=== PATIENT | female | born 1945 | race Caucasian/White ===

== ENCOUNTER 2018-02-07 21:06 | Observation (INO) | payer MEDICARE, OTHER ==
[2018-02-07] MEDS ORDERED: Sodium Chloride 0.9% 1,000 ML IV STA (21:33)
--- NOTE | 2018-02-07 21:35 | ED PDOC ---
HPI: Abdomen Time Seen by Provider: 02/07/18 21:30 Chief Complaint (Nursing): Abdominal Pain History Per: Patient Onset/Duration Of Symptoms: Days (2) Current Symptoms Are (Timing): Still Present Severity: Moderate Pain Scale Rating Of: 4 Location Of Pain/Discomfort: Epigastric Quality Of Discomfort: Unable To Describe Associated Symptoms: Nausea. denies: Fever, Diarrhea Exacerbating Factors: None Alleviating Factors: None Additional Complaint(s): Epigastric abd pain assoc with nausea. No fever or diarrhea. Past Medical History Vital Signs: Last Vital Signs Temp 98.6 F 02/08/18 09:04 Pulse 91 H 02/08/18 09:04 Resp 20 02/08/18 09:04 BP 173/75 H 02/08/18 10:27 Pulse Ox 95 02/08/18 09:04 - Medical History PMH: Anxiety, Depression, Diabetes (type II), HTN, Hypercholesterolemia - Surgical History Surgical History: Cholecystectomy - Family History Family History: States: Unknown Family Hx - Immunization History Hx Influenza Vaccination: Yes Hx Pneumococcal Vaccination: Yes - Home Medications Home Medications: Ambulatory Orders Medication Instructions Recorded Insulin Aspart, Recombinant 10 units SUBCUT DAILY 12/30/12 [Novolog] Insulin Detemir [Levemir] 15 units 12/30/12 Depakote 250 mg PO BID 03/24/13 Naproxen [Naprosyn] 500 mg PO TID PRN #25 tab 03/24/13 SEROquel 50 mg PO HS 03/24/13 Famotidine [Pepcid] 40 mg PO DAILY #30 tab 03/05/16 Ciprofloxacin [Cipro] 500 mg PO BID #14 tab 02/07/18 Lisinopril [Zestril] 2.5 mg PO DAILY #30 tab 02/07/18 - Allergies Allergies/Adverse Reactions: Allergies Allergy/AdvReac Type Severity Reaction Status Date / Time morphine AdvReac RASH Verified 02/07/18 21:09 Review of Systems ROS Statement: Except As Marked, All Systems Reviewed And Found Negative Gastrointestinal: Positive for: Nausea, Abdominal Pain Physical Exam - Reviewed Nursing Documentation Reviewed: Yes Vital Signs Reviewed: Yes - Physical Exam Appears: Positive for: Non-toxic, Uncomfortable Head Exam: Positive for: ATRAUMATIC, NORMAL INSPECTION, NORMOCEPHALIC Skin: Positive for: Normal Color, Warm, DRY Eye Exam: Positive for: EOMI, Normal appearance, PERRL ENT: Positive for: Normal ENT Inspection Neck: Positive for: Normal, Painless ROM Cardiovascular/Chest: Positive for: Regular Rate, Rhythm Respiratory: Positive for: CNT, Normal Breath Sounds Gastrointestinal/Abdominal: Positive for: Soft, Tenderness (epigastric) Back: Positive for: Normal Inspection Extremity: Positive for: Normal ROM Neurologic/Psych: Positive for: Alert, Oriented - Laboratory Results Result Diagrams: 02/07/18 22:20 02/07/18 22:20 - ECG O2 Sat by Pulse Oximetry: 98 Disposition - Clinical Impression Clinical Impression: Abdominal pain - Patient ED Disposition Is Patient to be Admitted: Transfer of Care - Disposition Disposition: Transfer of Care Disposition Time: 00:00 Condition: FAIR Patient Signed Over To: Roney Anthony
[2018-02-07 22:30] LABS: BASO % 0.5 % (0.0-2.0); EOS % 0.5 % (0.0-4.0); HEMOGLOBIN 14.5 g/dL (12.0-16.0); LYMPH # 0.8 K/uL (1.0-4.3); LYMPH % 12.8 % (20.0-40.0); MEAN CELL VOLUME 94.2 fl (81.0-99.0); MEAN CORPUSCULAR HEMOGLOBIN 31.5 pg (27.0-31.0); MEAN CORPUSCULAR HGB CONC 33.4 g/dL (33.0-37.0); MONO # 0.3 K/uL (0.0-0.8); MONO % 5.5 % (0.0-10.0); NEUT # 5.1 K/uL (1.8-7.0); NEUT % 80.7 % (50.0-75.0); RBC 4.62 Mil/uL (3.80-5.20); RED CELL DISTRIBUTION WIDTH 13.2 % (11.5-14.5); WHITE BLOOD COUNT 6.3 K/uL (4.8-10.8)
[2018-02-07 22:39] LABS: ALB/GLOB RATIO 1.4 (1.0-2.1); ALBUMIN 4.7 g/dL (3.5-5.0); CALCIUM 9.4 mg/dL (8.4-10.2); GFR NON-AFRICAN AMERICAN > 60; LIPASE 32 U/L (23-300)
[2018-02-07 22:52] LABS: ALT/SGPT 22 U/L (9-52); AST/SGOT 28 U/L (14-36); BLOOD UREA NITROGEN 11 mg/dl (7-17)
[2018-02-07] MEDS ORDERED: Sodium Chloride 0.9% 50 ML IV ONE (22:58)
[2018-02-07] MEDS ORDERED: Iohexol 300 100 ML IJ ONE (22:58)
--- NOTE | 2018-02-08 00:10 | ED PDOC ---
- Laboratory Results Result Diagrams: 02/07/18 22:20 02/07/18 22:20 - ECG O2 Sat by Pulse Oximetry: 98 (RA) Pulse Ox Interpretation: Normal Medical Decision Making Medical Decision Making: Time: 00:00 Patient was signed out to me by Dr. Harvey pending CT, reevaluation, and final disposition. CT Abd/Pelvis: FINDINGS: Lung bases: Small airway trapping and microatelectasis Heart: Cardiomegaly with coronary and faint valvular calcifications Mediastinum: Small hiatal hernia. Slight prominence of the lower esophageal wallClinical correlation. ABDOMEN: Liver: There is hepatomegaly and fatty infiltration of the liver. Gallbladder and bile ducts: Prior cholecystectomy without CT complications. No ductal dilation. Pancreas: Unremarkable. No mass. No ductal dilation. Spleen: Unremarkable. No splenomegaly. Adrenals: Unremarkable. No mass. Kidneys and ureters: There is a stable punctate calcification posterior-lateral to the upper left ureter.No hydronephrosis or differential renal nephrogram. Stomach and bowel: Stomach distended with semisolid food. Prior left hemicolectomy. Distention of the afferent limb with a component of obstruction at the surgical suture line possible. No definitive mesenteric twist sigmoid volvulus. There also surgical clips deep to the afferent limb. There is semisolid stool in the rectosigmoid colon Limitations colon streak artifact Diverticulosis coli, without full-filling the C.T. criteria for diverticulitis. No perforation, or abscess. No signs or history of bleeding provided. PELVIS: Appendix: The appendix is not identified with certainty but there are no secondary C.T. findings of appendicitis. Bladder: Unremarkable. No mass. Reproductive: Unremarkable as visualized. ABDOMEN and PELVIS: Intraperitoneal space: Unremarkable. No free air. No significant fluid collection. Bones/joints: Spondylosis and facet arthrosis No acute fracture. No dislocation. Soft tissues: Unremarkable. Vasculature: Atheromatous changes of a normal caliber aorta and branch vessels. No abdominal aortic aneurysm. Lymph nodes: Unremarkable. No enlarged lymph nodes. IMPRESSION: Colonic anatomy is difficult to evaluate in the absence of enteric contrast. Left hemicolectomy with chain sutures and distention of the afferent limb without definitive mesenteric twist. Please correlate clinically. Prior cholecystectomy. 00:[address] findings and clinical presentation, surgical consultation ordered. 1:[address] Fink, covering for Dr. Damon Roth, who will accept patient for admission under observation status for abdominal pain. Dr. Hernandes, certified surgical assistant cfo controller will evaluate patient. Scribe Attestation: Documented by, Rain Garner acting as a scribe for Ronye Anthony MD. Provider Scribe Attestation: All medical record entries made by the Scribe were at my direction and personally dictated by me. I have reviewed the chart and agree that the record accurately reflects my personal performance of the history, physical exam, medical decision making, and the department course for this patient. I have also personally directed, reviewed, and agree with the discharge instructions and disposition. Disposition - Clinical Impression Clinical Impression: Abdominal pain - POA Present On Arrival: None - Disposition Disposition: Hospitalized as Observation Patient Disposition Time: 01:30 Condition: FAIR
--- NOTE | 2018-02-08 01:08 | CP.PCM.CON ---
<Yoel Hernandes - Last Filed: 02/08/18 07:15> History of Present Illness - History of Present Illness History of Present Illness: General Surgery Consult Note for Dr. Joshua Reason for consult: abdominal pain 72F with PMH of DM, HTN, s/p subtotal colectomy who presents to [facility] for complaint of abdominal pain. Patient was seen and evaluated in the ED immediately upon page. Patient was discharged from [facility] yesterday (02/07). Patient was admitted for constipation and abdominal pain s/p Fall. Patient was discahrged on bowel regimen, lisinopril, and cipro. Patient presented with abdominal pain but would only state she had pain. She did not answer other questions. ROS unobtainable due to cooperation. CT abd/pelvis was done in the ED. Initial [facility] readding was suggestive of sigmoid volvulus but radiologist was unaware that patient did not have sigmoid colon due to subtotal colectomy in 2017. Ct scan showed stool and slightly dilated colon upon review, pending official read. PMD: Dr. Jose PMH: DM PSH: subtotal colectomy at [facility] 2017, cholecystectomy Meds: Novolog 10units; Levemir 15 units HS Allergies: Morphine FH: cancer Social: Lives with daughter or friend; denies EtOH/tobacco/illicit drug use. Review of Systems - Review of Systems All systems: reviewed and no additional remarkable complaints except (as per HPI ) Past Patient History - Past Social History Smoking Status: Never Smoked - CARDIAC Hx Hypercholesterolemia: Yes Hx Hypertension: Yes - ENDOCRINE/METABOLIC Hx Endocrine Disorders: Yes Hx Diabetes Mellitus Type 2: Yes - PSYCHIATRIC Hx Anxiety: Yes Hx Depression: Yes - SURGICAL HISTORY Hx Cholecystectomy: Yes - ANESTHESIA Hx Anesthesia: Yes Hx Anesthesia Reactions: No Hx Malignant Hyperthermia: No Meds Allergies/Adverse Reactions: Allergies Allergy/AdvReac Type Severity Reaction Status Date / Time morphine AdvReac RASH Verified 02/07/18 21:09 - Medications Medications: Current Medications Sodium Chloride (Sodium Chloride 0.9%) 1,000 mls @ 100 mls/hr IV .Q10H STA Stop: 02/08/18 07:32 Last Admin: 02/07/18 23:15 Dose: 100 mls/hr Physical Exam - Constitutional Appears: Agitated - Head Exam Head Exam: ATRAUMATIC, NORMOCEPHALIC - Eye Exam Eye Exam: Normal appearance - ENT Exam ENT Exam: Mucous Membranes Moist - Respiratory Exam Respiratory Exam: NORMAL BREATHING PATTERN - Cardiovascular Exam Cardiovascular Exam: REGULAR RHYTHM - GI/Abdominal Exam GI & Abdominal Exam: Normal Bowel Sounds, Soft, Tenderness (RLQ). absent: Distended, Firm, Guarding, Hernia, Rebound, Rigid - Neurological Exam Neurological exam: Alert - Psychiatric Exam Psychiatric exam: Agitated - Skin Skin Exam: Dry, Warm Results - Vital Signs Recent Vital Signs: Last Vital Signs Temp 97.9 F 02/07/18 21:10 Pulse 94 H 02/07/18 21:10 Resp 18 02/07/18 21:10 BP 138/95 H 02/07/18 21:10 Pulse Ox 98 02/08/18 00:56 - Labs Result Diagrams: 02/07/18 22:20 02/07/18 22:20 Labs: Laboratory Results - last 24 hr 02/07/18 02/07/18 02/07/18 21:28 22:20 22:20 WBC 6.3 RBC 4.62 Hgb 14.5 Hct 43.5 MCV 94.2 MCH 31.5 H MCHC 33.4 RDW 13.2 Plt Count 370 MPV 9.0 Neut % (Auto) 80.7 H Lymph % (Auto) 12.8 L Marin % (Auto) 5.5 Eos % (Auto) 0.5 Baso % (Auto) 0.5 Neut # (Auto) 5.1 Lymph # (Auto) 0.8 L Marin # (Auto) 0.3 Eos # (Auto) 0.0 Baso # (Auto) 0.0 Sodium 136 Potassium 4.1 Chloride 103 Carbon Dioxide 20 L Anion Gap 17 BUN 11 Creatinine 0.6 L Est GFR ( Amer) > 60 Est GFR (Non-Af Amer) > 60 POC Glucose (mg/dL) 188 H Random Glucose 197 H Calcium 9.4 Total Bilirubin 0.9 AST 28 ALT 22 Alkaline Phosphatase 62 Total Protein 8.2 Albumin 4.7 Globulin 3.4 Albumin/Globulin Ratio 1.4 Lipase 32 Assessment & Plan - Assessment and Plan (Free Text) Assessment: 72 F who presents for abdominal pain - Date & Time Date: 02/08/18 Time: 02:00 <Oren Shay - Last Filed: 02/08/18 14:14> Meds - Medications Medications: Current Medications Dextrose (Dextrose 50% Inj) 0 ml IV STAT PRN; Protocol PRN Reason: Hypoglycemia Protocol Dextrose (Glutose 15) 0 gm PO ONCE PRN; Protocol PRN Reason: Hypoglycemia Protocol Dicyclomine HCl (Bentyl) 10 mg PO QID PRN PRN Reason: Pain, moderate (4-7) Glucagon (Glucagen Diagnostic Kit) 0 mg IM STAT PRN; Protocol PRN Reason: Hypoglycemia Protocol Lactated Ringer's (Lactated Ringer's) 1,000 mls @ 85 mls/hr IV .[id number] [facility] Last Admin: 02/08/18 03:50 Dose: 85 mls/hr Insulin Human Regular (Humulin R) 0 units SC ACB [facility] PRN Reason: Protocol Last Admin: 02/08/18 08:41 Dose: Not Given Lisinopril (Zestril) 20 mg PO DAILY [facility] Last Admin: 02/08/18 10:27 Dose: 20 mg Metformin HCl (Glucophage) 500 mg PO BIDWM [facility] Last Admin: 02/08/18 10:32 Dose: 500 mg Ondansetron HCl (Zofran Inj) 4 mg IVP Q6 PRN PRN Reason: Nausea/Vomiting Pantoprazole Sodium (Protonix Inj) 40 mg IVP DAILY [facility] Last Admin: 02/08/18 08:44 Dose: 40 mg Sitagliptin Phosphate (Januvia) 100 mg PO DAILY [facility] Last Admin: 02/08/18 10:31 Dose: 100 mg Results - Vital Signs Recent Vital Signs: Last Vital Signs Temp 98.6 F 02/08/18 09:04 Pulse 91 H 02/08/18 09:04 Resp 20 02/08/18 09:04 BP 173/75 H 02/08/18 10:27 Pulse Ox 95 02/08/18 09:04 - Labs Result Diagrams: 02/07/18 22:20 02/07/18 22:20 Labs: Laboratory Results - last 24 hr 02/07/18 02/07/18 02/07/18 21:28 22:20 22:20 WBC 6.3 RBC 4.62 Hgb 14.5 Hct 43.5 MCV 94.2 MCH 31.5 H MCHC 33.4 RDW 13.2 Plt Count 370 MPV 9.0 Neut % (Auto) 80.7 H Lymph % (Auto) 12.8 L Marin % (Auto) 5.5 Eos % (Auto) 0.5 Baso % (Auto) 0.5 Neut # (Auto) 5.1 Lymph # (Auto) 0.8 L Marin # (Auto) 0.3 Eos # (Auto) 0.0 Baso # (Auto) 0.0 Sodium 136 Potassium 4.1 Chloride 103 Carbon Dioxide 20 L Anion Gap 17 BUN 11 Creatinine 0.6 L Est GFR ( Amer) > 60 Est GFR (Non-Af Amer) > 60 POC Glucose (mg/dL) 188 H Random Glucose 197 H Lactic Acid Calcium 9.4 Total Bilirubin 0.9 AST 28 ALT 22 Alkaline Phosphatase 62 Total Protein 8.2 Albumin 4.7 Globulin 3.4 Albumin/Globulin Ratio 1.4 Triglycerides Cholesterol LDL Cholesterol Direct HDL Cholesterol Lipase 32 TSH 3rd Generation 02/08/18 02/08/18 02/08/18 02:45 03:46 06:18 WBC RBC Hgb Hct MCV MCH MCHC RDW Plt Count MPV Neut % (Auto) Lymph % (Auto) Marin % (Auto) Eos % (Auto) Baso % (Auto) Neut # (Auto) Lymph # (Auto) Marin # (Auto) Eos # (Auto) Baso # (Auto) Sodium Potassium Chloride Carbon Dioxide Anion Gap BUN Creatinine Est GFR ( Amer) Est GFR (Non-Af Amer) POC Glucose (mg/dL) 183 H 170 H Random Glucose Lactic Acid 0.7 Calcium Total Bilirubin AST ALT Alkaline Phosphatase Total Protein Albumin Globulin Albumin/Globulin Ratio Triglycerides Cholesterol LDL Cholesterol Direct HDL Cholesterol Lipase TSH 3rd Generation 02/08/18 10:35 WBC RBC Hgb Hct MCV MCH MCHC RDW Plt Count MPV Neut % (Auto) Lymph % (Auto) Marin % (Auto) Eos % (Auto) Baso % (Auto) Neut # (Auto) Lymph # (Auto) Marin # (Auto) Eos # (Auto) Baso # (Auto) Sodium Potassium Chloride Carbon Dioxide Anion Gap BUN Creatinine Est GFR ( Amer) Est GFR (Non-Af Amer) POC Glucose (mg/dL) Random Glucose Lactic Acid Calcium Total Bilirubin AST ALT Alkaline Phosphatase Total Protein Albumin Globulin Albumin/Globulin Ratio Triglycerides 105 Cholesterol 271 H LDL Cholesterol Direct 128 HDL Cholesterol 104 H Lipase TSH 3rd Generation < 0.02 L Assessment & Plan - Assessment and Plan (Free Text) Plan: Abdominal pain secondary to constipation causing distal blockage. Pt now has significant relief after having several large BMs. Recommend Fleets enema, dulcolax suppository, and Mag citrate to help clean out her colon prior to discharge. Recommend fiber supplements and/or stool softener as an outpatient to prevent recurrence. No need for surgical intervention at this time. Surgery will sign off. D/W Dr. Tres Shay PGY4 <Devon Joshua - Last Filed: 02/08/18 17:47> Meds - Medications Medications: Current Medications Dextrose (Dextrose 50% Inj) 0 ml IV STAT PRN; Protocol PRN Reason: Hypoglycemia Protocol Dextrose (Glutose 15) 0 gm PO ONCE PRN; Protocol PRN Reason: Hypoglycemia Protocol Dicyclomine HCl (Bentyl) 10 mg PO QID PRN PRN Reason: Pain, moderate (4-7) Last Admin: 02/08/18 16:31 Dose: 10 mg Glucagon (Glucagen Diagnostic Kit) 0 mg IM STAT PRN; Protocol PRN Reason: Hypoglycemia Protocol Lactated Ringer's (Lactated Ringer's) 1,000 mls @ 85 mls/hr IV .[id number] [facility] Last Admin: 02/08/18 03:50 Dose: 85 mls/hr Insulin Human Regular (Humulin R) 0 units SC ACB [facility] PRN Reason: Protocol Last Admin: 02/08/18 08:41 Dose: Not Given Lisinopril (Zestril) 20 mg PO DAILY [facility] Last Admin: 02/08/18 10:27 Dose: 20 mg Metformin HCl (Glucophage) 500 mg PO BIDWM [facility] Last Admin: 02/08/18 16:32 Dose: 500 mg Ondansetron HCl (Zofran Inj) 4 mg IVP Q6 PRN PRN Reason: Nausea/Vomiting Pantoprazole Sodium (Protonix Inj) 40 mg IVP DAILY [facility] Last Admin: 02/08/18 08:44 Dose: 40 mg Sitagliptin Phosphate (Januvia) 100 mg PO DAILY [facility] Last Admin: 02/08/18 10:31 Dose: 100 mg Results - Vital Signs Recent Vital Signs: Last Vital Signs Temp 99.3 F 02/08/18 15:54 Pulse 96 H 02/08/18 15:54 Resp 20 02/08/18 15:54 BP 169/80 H 02/08/18 15:54 Pulse Ox 97 09/05/18 15:54 - Labs Result Diagrams: 02/07/18 22:20 02/07/18 22:20 Labs: Laboratory Results - last 24 hr 02/07/18 02/07/18 02/07/18 21:28 22:20 22:20 WBC 6.3 RBC 4.62 Hgb 14.5 Hct 43.5 MCV 94.2 MCH 31.5 H MCHC 33.4 RDW 13.2 Plt Count 370 MPV 9.0 Neut % (Auto) 80.7 H Lymph % (Auto) 12.8 L Marin % (Auto) 5.5 Eos % (Auto) 0.5 Baso % (Auto) 0.5 Neut # (Auto) 5.1 Lymph # (Auto) 0.8 L Marin # (Auto) 0.3 Eos # (Auto) 0.0 Baso # (Auto) 0.0 Sodium 136 Potassium 4.1 Chloride 103 Carbon Dioxide 20 L Anion Gap 17 BUN 11 Creatinine 0.6 L Est GFR ( Amer) > 60 Est GFR (Non-Af Amer) > 60 POC Glucose (mg/dL) 188 H Random Glucose 197 H Hemoglobin A1c Lactic Acid Calcium 9.4 Total Bilirubin 0.9 AST 28 ALT 22 Alkaline Phosphatase 62 Total Protein 8.2 Albumin 4.7 Globulin 3.4 Albumin/Globulin Ratio 1.4 Triglycerides Cholesterol LDL Cholesterol Direct HDL Cholesterol Lipase 32 TSH 3rd Generation 02/08/18 02/08/18 02/08/18 02:45 03:46 06:18 WBC RBC Hgb Hct MCV MCH MCHC RDW Plt Count MPV Neut % (Auto) Lymph % (Auto) Marin % (Auto) Eos % (Auto) Baso % (Auto) Neut # (Auto) Lymph # (Auto) Marin # (Auto) Eos # (Auto) Baso # (Auto) Sodium Potassium Chloride Carbon Dioxide Anion Gap BUN Creatinine Est GFR ( Amer) Est GFR (Non-Af Amer) POC Glucose (mg/dL) 183 H 170 H Random Glucose Hemoglobin A1c Lactic Acid 0.7 Calcium Total Bilirubin AST ALT Alkaline Phosphatase Total Protein Albumin Globulin Albumin/Globulin Ratio Triglycerides Cholesterol LDL Cholesterol Direct HDL Cholesterol Lipase TSH 3rd Generation 02/08/18 02/08/18 02/08/18 10:07 10:35 15:41 WBC RBC Hgb Hct MCV MCH MCHC RDW Plt Count MPV Neut % (Auto) Lymph % (Auto) Marin % (Auto) Eos % (Auto) Baso % (Auto) Neut # (Auto) Lymph # (Auto) Marin # (Auto) Eos # (Auto) Baso # (Auto) Sodium Potassium Chloride Carbon Dioxide Anion Gap BUN Creatinine Est GFR ( Amer) Est GFR (Non-Af Amer) POC Glucose (mg/dL) 142 H Random Glucose Hemoglobin A1c 10.6 H Lactic Acid Calcium Total Bilirubin AST ALT Alkaline Phosphatase Total Protein Albumin Globulin Albumin/Globulin Ratio Triglycerides 105 Cholesterol 271 H LDL Cholesterol Direct 128 HDL Cholesterol 104 H Lipase TSH 3rd Generation < 0.02 L Assessment & Plan - Assessment and Plan (Free Text) Plan: I personally saw and examined the patient with the resident staff and agree with the above assessment and plan. I personally reviewed the available diagnostic images and imaging reports. Significant stool burden on CT in rectum and proximal colon from prior anastomosis. Abd pain improved and passing flatus at bedside. Rec bowel evacuation as above, diet as tolerated and discharge per primary team as there are no acute surgical needs.
[2018-02-08] MEDS: Lactated Ringer's 1,000 ML IV SCH (03:50)
[2018-02-08] MEDS ORDERED: Dextrose 50% SYRINGE Inj (50 ml) IV PRN (06:41)
[2018-02-08] MEDS ORDERED: Glucagon Recombinant 1 mg Inj IM PRN (06:41)
[2018-02-08] MEDS ORDERED: Dextrose 5%/Lactated Ringer's 1,000 ML IV SCH (06:45)
[2018-02-08] MEDS: Insulin Regular 100 units/ml SC SCH (08:41)
[2018-02-08 10:52] LABS: HDL CHOLESTEROL 104 MG/DL (30-70)
[2018-02-08 11:02] LABS: LDL CHOLESTEROL 128 mg/dL (0-129)
--- NOTE | 2018-02-08 11:33 | CT ---
Date of service: 02/07/2018 PROCEDURE: CT Abdomen and Pelvis with contrast HISTORY: Abdominal pain. Relevant surgical history: Left hemicolectomy. COMPARISON: 03/05/2016 TECHNIQUE: Contrast dose: 80.2 mL Omnipaque 300 Radiation dose: Total exam DLP = 198.59 mGy-cm. This CT exam was performed using one or more of the following dose reduction techniques: Automated exposure control, adjustment of the mA and/or kV according to patient size, and/or use of iterative reconstruction technique. FINDINGS: LOWER THORAX: Unremarkable. LIVER: Hepatic steatosis. No focal masses. No intrahepatic bile duct dilatation or perihepatic ascites. GALLBLADDER AND BILE DUCTS: Status post cholecystectomy. No abnormality is seen in the gallbladder fossa. PANCREAS: Unremarkable. No gross lesion or ductal dilatation. SPLEEN: Unremarkable. ADRENALS: Unremarkable. No mass. KIDNEYS AND URETERS: Unremarkable. No hydronephrosis. No solid mass. VASCULATURE: Unremarkable. No aortic aneurysm. BOWEL: Distention of the colon proximal to the anastomotic suture line. Similar findings identified on the prior CT scan common debris of dilatation more prominent currently. Obstruction at the site therefore should be considered. APPENDIX: Normal appendix. PERITONEUM: Unremarkable. No free fluid. No free air. LYMPH NODES: Unremarkable. No enlarged lymph nodes. BLADDER: Unremarkable. REPRODUCTIVE: Unremarkable. BONES: No acute fracture. OTHER FINDINGS: None. IMPRESSION: Status post left hemicolectomy. Distention proximal to the surgical suture line. A component of obstruction therefore should be considered. Concordant results (preliminary interpretation) provided by [facility]. Procedure Completed: 23:23 Preliminary ([facility]) Report: Dictated and Authenticated: 00:16. February 08, 2018. Final Interpretation: 11:32. February 08, 2018.
[2018-02-08] MEDS ORDERED: Magnesium Citrate Oral SOL (300 ml) PO ONE (13:29)
[2018-02-08] MEDS ORDERED: Chlorhexidine Gluconate 1 APPL/PKT TP ONE (16:29)
--- NOTE | 2018-02-08 16:34 | CP.PCM.HP ---
History of Present Illness - History of Present Illness History of Present Illness: 72 yo F with pmhx of dm, L colectomy presented to the ED with abdominal pain. epigastric region with nausea. CT: abdo reviewed Of note, she was evaluated and treated at [facility] 02/05/2018: dc with bowel regimen and cipro pmd: dr. phillips surg: L bowel resection soc: denies smoking, alcohol, illicit drugs famhx: cancer Allergies: morphine Present on Admission - Present on Admission Any Indicators Present on Admission: Yes History of Uncontrolled Diabetes: Yes Review of Systems - Cardiovascular Cardiovascular: absent: Chest Pain - Respiratory Respiratory: absent: Cough, Dyspnea - Gastrointestinal Gastrointestinal: As Per HPI, Abdominal Pain Past Patient History - Past Medical History & Family History Past Medical History?: Yes - Past Social History Smoking Status: Never Smoked Alcohol: None Drugs: Denies - CARDIAC Hx Hypercholesterolemia: Yes Hx Hypertension: Yes - ENDOCRINE/METABOLIC Hx Endocrine Disorders: Yes Hx Diabetes Mellitus Type 2: Yes - MUSCULOSKELETAL/RHEUMATOLOGICAL Hx Falls: No - GASTROINTESTINAL Hx Gall Bladder Disease: Yes - PSYCHIATRIC Hx Anxiety: Yes Hx Depression: Yes - SURGICAL HISTORY Hx Cholecystectomy: Yes - ANESTHESIA Hx Anesthesia: Yes Hx Anesthesia Reactions: No Hx Malignant Hyperthermia: No Meds Allergies/Adverse Reactions: Allergies Allergy/AdvReac Type Severity Reaction Status Date / Time morphine AdvReac RASH Verified 02/07/18 21:09 Physical Exam - Eye Exam Eye Exam: EOMI - Respiratory Exam Respiratory Exam: Clear to Auscultation Bilateral, NORMAL BREATHING PATTERN. absent: Wheezes - Cardiovascular Exam Cardiovascular Exam: +S1, +S2 - GI/Abdominal Exam GI & Abdominal Exam: Normal Bowel Sounds, Tenderness (RLQ) - Neurological Exam Neurological exam: Alert, CN II-XII Intact, Oriented x3 - Psychiatric Exam Psychiatric exam: Anxious Results - Vital Signs Recent Vital Signs: Last Vital Signs Temp 99.3 F 02/08/18 15:54 Pulse 96 H 02/08/18 15:54 Resp 20 02/08/18 15:54 BP 169/80 H 02/08/18 15:54 Pulse Ox 97 02/08/18 15:54 - Labs Result Diagrams: 02/07/18 22:20 02/07/18 22:20 Labs: Laboratory Results - last 24 hr 02/07/18 02/07/18 02/07/18 21:28 22:20 22:20 WBC 6.3 RBC 4.62 Hgb 14.5 Hct 43.5 MCV 94.2 MCH 31.5 H MCHC 33.4 RDW 13.2 Plt Count 370 MPV 9.0 Neut % (Auto) 80.7 H Lymph % (Auto) 12.8 L Parke % (Auto) 5.5 Eos % (Auto) 0.5 Baso % (Auto) 0.5 Neut # (Auto) 5.1 Lymph # (Auto) 0.8 L Parke # (Auto) 0.3 Eos # (Auto) 0.0 Baso # (Auto) 0.0 Sodium 136 Potassium 4.1 Chloride 103 Carbon Dioxide 20 L Anion Gap 17 BUN 11 Creatinine 0.6 L Est GFR ( Amer) > 60 Est GFR (Non-Af Amer) > 60 POC Glucose (mg/dL) 188 H Random Glucose 197 H Hemoglobin A1c Lactic Acid Calcium 9.4 Total Bilirubin 0.9 AST 28 ALT 22 Alkaline Phosphatase 62 Total Protein 8.2 Albumin 4.7 Globulin 3.4 Albumin/Globulin Ratio 1.4 Triglycerides Cholesterol LDL Cholesterol Direct HDL Cholesterol Lipase 32 TSH 3rd Generation 02/08/18 02/08/18 02/08/18 02:45 03:46 06:18 WBC RBC Hgb Hct MCV MCH MCHC RDW Plt Count MPV Neut % (Auto) Lymph % (Auto) Parke % (Auto) Eos % (Auto) Baso % (Auto) Neut # (Auto) Lymph # (Auto) Parke # (Auto) Eos # (Auto) Baso # (Auto) Sodium Potassium Chloride Carbon Dioxide Anion Gap BUN Creatinine Est GFR ( Amer) Est GFR (Non-Af Amer) POC Glucose (mg/dL) 183 H 170 H Random Glucose Hemoglobin A1c Lactic Acid 0.7 Calcium Total Bilirubin AST ALT Alkaline Phosphatase Total Protein Albumin Globulin Albumin/Globulin Ratio Triglycerides Cholesterol LDL Cholesterol Direct HDL Cholesterol Lipase TSH 3rd Generation 02/08/18 02/08/18 02/08/18 10:07 10:35 15:41 WBC RBC Hgb Hct MCV MCH MCHC RDW Plt Count MPV Neut % (Auto) Lymph % (Auto) Parke % (Auto) Eos % (Auto) Baso % (Auto) Neut # (Auto) Lymph # (Auto) Parke # (Auto) Eos # (Auto) Baso # (Auto) Sodium Potassium Chloride Carbon Dioxide Anion Gap BUN Creatinine Est GFR ( Amer) Est GFR (Non-Af Amer) POC Glucose (mg/dL) 142 H Random Glucose Hemoglobin A1c 10.6 H Lactic Acid Calcium Total Bilirubin AST ALT Alkaline Phosphatase Total Protein Albumin Globulin Albumin/Globulin Ratio Triglycerides 105 Cholesterol 271 H LDL Cholesterol Direct 128 HDL Cholesterol 104 H Lipase TSH 3rd Generation < 0.02 L Assessment & Plan - Assessment and Plan (Free Text) Plan: 72 yo F with pmhx of dm, L colectomy presented to the ED with abdominal pain. CT abdo and pelvis reviewed Surgery: abdo pain likely 2/2 constipation, relieved after BMs. recommend fleet enema, dulcolax suppository, mag citrate. OP: fiber and or stool softener; no surgical intervention -continue to manage as ordered. Monitor abdo pain, PO diet: liquid to solid; and BMs dvt prophylaxis: scd boots and encourage ambulation. case dw Dr. Aleks brown md pgy2
[2018-02-08] MEDS: Simethicone 80 mg Chewtab PO PRN (20:50)
[2018-02-09] MEDS: Lactated Ringer's 1,000 ML IV SCH (04:07)
[2018-02-09] MEDS: Simethicone 80 mg Chewtab PO PRN (04:12)
[2018-02-09] MEDS: Insulin Regular 100 units/ml SC SCH (07:12)
[2018-02-09 08:12] VITALS: O2SAT 97
--- NOTE | 2018-02-09 14:49 | CP.PCM.PCO ---
Assessment/Plan - Assessment/Plan Assessment (Free Text): Pt stable, cleared for d/c home by Dr. Joshua and Dr. Hanna. Pt seen and cleared for d/c home by Dr. Fink. Rx for oral hypoglycemics given, per Dr. Fink, pt to take as directed and d/c insulin. Pt to f/u with PMD in 1 week.
[2018-02-09 16:24] VITALS: BP 162/77; PULSE 88; RESP 18; TEMP 98.7
--- NOTE | 2018-02-09 23:12 | CP.PCM.CON ---
History of Present Illness - History of Present Illness History of Present Illness: 72 yo female recently at [facility] ER for abdominal pain. Returning a day later with persistent pain. Has h/o left hemicolectomy. Review of Systems - Constitutional Constitutional: absent: Chills - EENT Eyes: absent: Blurred Vision Ears: absent: Ear Pain Nose/Mouth/Throat: absent: Nasal Congestion - Cardiovascular Cardiovascular: absent: Chest Pain - Respiratory Respiratory: absent: Cough - Gastrointestinal Gastrointestinal: Abdominal Pain - Genitourinary Genitourinary: absent: Change in Urinary Stream Past Patient History - Past Medical History & Family History Past Medical History?: Yes - Past Social History Smoking Status: Never Smoked Alcohol: None Drugs: Denies - CARDIAC Hx Hypercholesterolemia: Yes Hx Hypertension: Yes - ENDOCRINE/METABOLIC Hx Endocrine Disorders: Yes Hx Diabetes Mellitus Type 2: Yes - MUSCULOSKELETAL/RHEUMATOLOGICAL Hx Falls: No - GASTROINTESTINAL Hx Gall Bladder Disease: Yes - PSYCHIATRIC Hx Anxiety: Yes Hx Depression: Yes - SURGICAL HISTORY Hx Cholecystectomy: Yes - ANESTHESIA Hx Anesthesia: Yes Hx Anesthesia Reactions: No Hx Malignant Hyperthermia: No Meds Home Medications: Home Medication List Medication Instructions Recorded Confirmed Type Dicyclomine [Bentyl] 10 mg PO TID PRN #20 cap 02/09/18 Rx Famotidine [Pepcid] 40 mg PO DAILY #30 tab 02/09/18 Rx Glipizide [Glipizide ER] 2.5 mg PO DAILY #30 ter 02/09/18 Rx Lisinopril [Zestril] 20 mg PO DAILY #30 tab 02/09/18 Rx SITagliptin [Januvia] 100 mg PO DAILY #30 tab 02/09/18 Rx metFORMIN [glucOPHAGE] 500 mg PO BIDWM #60 tab 02/09/18 Rx Allergies/Adverse Reactions: Allergies Allergy/AdvReac Type Severity Reaction Status Date / Time morphine AdvReac RASH Verified 02/07/18 21:09 Physical Exam - Head Exam Head Exam: ATRAUMATIC - Eye Exam Eye Exam: Normal appearance - ENT Exam ENT Exam: Normal External Ear Exam - Neck Exam Neck exam: Positive for: Normal Inspection - Respiratory Exam Respiratory Exam: Clear to Auscultation Bilateral - Cardiovascular Exam Cardiovascular Exam: REGULAR RHYTHM, +S1, +S2 - GI/Abdominal Exam GI & Abdominal Exam: Normal Bowel Sounds, Soft, Tenderness Additional comments: mild generalized tenderness with deep palpation. Results - Vital Signs Recent Vital Signs: Last Vital Signs Temp 98.7 F 02/09/18 16:22 Pulse 88 02/09/18 16:22 Resp 18 02/09/18 16:22 BP 162/77 H 02/09/18 16:22 Pulse Ox 97 02/09/18 16:22 - Labs Result Diagrams: 02/07/18 22:20 02/07/18 22:20 Labs: Laboratory Results - last 24 hr 02/08/18 02/09/18 02/09/18 11:38 05:43 11:20 POC Glucose (mg/dL) 169 H 164 H 148 H 02/09/18 16:01 POC Glucose (mg/dL) 165 H - Imaging and Cardiology CT scan - abdomen Status: Image reviewed by me, Report reviewed by me Assessment & Plan (1) Abdominal pain Assessment and Plan: Fecal retention seen on CT. Given bowel cleansers yesterday and now abdomen is soft and bowel sounds active.. May be discharged today. Status: Acute
--- NOTE | 2018-02-09 23:18 | CP.PCM.CON ---
History of Present Illness - History of Present Illness History of Present Illness: 72 yo female seen in [facility] ER 2 days ago admitted with ongoind pain and fecal retention. Has h/o left hemicolectomy Review of Systems - Constitutional Constitutional: absent: Chills - EENT Eyes: absent: Blurred Vision Ears: absent: Ear Discharge Nose/Mouth/Throat: absent: Nasal Congestion - Cardiovascular Cardiovascular: absent: Chest Pain - Respiratory Respiratory: absent: Dyspnea - Gastrointestinal Gastrointestinal: Abdominal Pain Past Patient History - Past Medical History & Family History Past Medical History?: Yes - Past Social History Smoking Status: Never Smoked Alcohol: None Drugs: Denies - CARDIAC Hx Hypercholesterolemia: Yes Hx Hypertension: Yes - ENDOCRINE/METABOLIC Hx Endocrine Disorders: Yes Hx Diabetes Mellitus Type 2: Yes - MUSCULOSKELETAL/RHEUMATOLOGICAL Hx Falls: No - GASTROINTESTINAL Hx Gall Bladder Disease: Yes - PSYCHIATRIC Hx Anxiety: Yes Hx Depression: Yes - SURGICAL HISTORY Hx Cholecystectomy: Yes - ANESTHESIA Hx Anesthesia: Yes Hx Anesthesia Reactions: No Hx Malignant Hyperthermia: No Meds Home Medications: Home Medication List Medication Instructions Recorded Confirmed Type Dicyclomine [Bentyl] 10 mg PO TID PRN #20 cap 02/09/18 Rx Famotidine [Pepcid] 40 mg PO DAILY #30 tab 02/09/18 Rx Glipizide [Glipizide ER] 2.5 mg PO DAILY #30 ter 02/09/18 Rx Lisinopril [Zestril] 20 mg PO DAILY #30 tab 02/09/18 Rx SITagliptin [Januvia] 100 mg PO DAILY #30 tab 02/09/18 Rx metFORMIN [glucOPHAGE] 500 mg PO BIDWM #60 tab 02/09/18 Rx Allergies/Adverse Reactions: Allergies Allergy/AdvReac Type Severity Reaction Status Date / Time morphine AdvReac RASH Verified 02/07/18 21:09 Physical Exam - Constitutional Appears: Older Than Stated Age - Head Exam Head Exam: ATRAUMATIC - Eye Exam Eye Exam: Normal appearance - Neck Exam Neck exam: Positive for: Normal Inspection - Respiratory Exam Respiratory Exam: Clear to Auscultation Bilateral - Cardiovascular Exam Cardiovascular Exam: REGULAR RHYTHM, +S1, +S2 - GI/Abdominal Exam GI & Abdominal Exam: Normal Bowel Sounds, Soft, Tenderness Additional comments: mild generalized tenderness Results - Vital Signs Recent Vital Signs: Last Vital Signs Temp 98.7 F 02/09/18 16:22 Pulse 88 02/09/18 16:22 Resp 18 02/09/18 16:22 BP 162/77 H 02/09/18 16:22 Pulse Ox 97 02/09/18 16:22 - Labs Result Diagrams: 02/07/18 22:20 02/07/18 22:20 Labs: Laboratory Results - last 24 hr 02/08/18 02/09/18 02/09/18 11:38 05:43 11:20 POC Glucose (mg/dL) 169 H 164 H 148 H 02/09/18 16:01 POC Glucose (mg/dL) 165 H Assessment & Plan (1) Abdominal pain Assessment and Plan: Patient with fecal retention now better after bowel cleansing. Stable for discharge to be followed as outpatient. Status: Acute
== END 2018-02-09 19:00 | disposition home or self-care (01) ==
LOC: H.ER 21:06 → H.ERHOLD 02-08 01:00 → H.MEDSURG1 02-08 04:41
PROVIDERS: ADMIT Family Medicine; ATTEND Family Medicine
DX: K59.09 Other constipation (principal); R10.13 Epigastric pain; E11.9 Type 2 diabetes mellitus without complications; I10 Essential (primary) hypertension; E78.00 Pure hypercholesterolemia, unspecified; F41.9 Anxiety disorder, unspecified; Z79.4 Long term (current) use of insulin; Z90.49 Acquired absence of other specified parts of digestive tract
CPT/HCPCS: 74177; 80053; 80061; 81025; 82948; 83036; 83605; 83690; 84443; 85025; 96374; 99285; C9113; G0378; J2405; J7030; J7120; Q9967